=== PATIENT | male | born 1965 | race Hispanic/Latino ===

== ENCOUNTER 2016-10-11 08:37 | Emergency (ER) | payer OTHER ==
[2016-10-11 08:52] VITALS: RESP 18
[2016-10-11 08:53] VITALS: TEMP 97.8
[2016-10-11] MEDS ORDERED: Silver Sulfadiazine 1% Cream (20 gm) TOP STA (08:55)
--- NOTE | 2016-10-11 09:15 | ED PDOC ---
Arrival/HPI - General Chief Complaint: Abnormal Skin Integrity Time Seen by Provider: 10/11/16 08:45 Historian: Patient - History of Present Illness Narrative History of Present Illness (Text): 10/11/16 09:16 A 50 year old male, whose past medical history includes cellulitis, was sent to the emergency department by PMD complaining of a right lower leg blister that developed this week. Patient reports blister was drained and cleaned and was told to come to emergency department for ultrasound of lower extremity. Patient is able to ambulate without difficulty. Denies any injury or pain to area, calf pain or any other complaints at this time. Medications: Levaquin, Zestril, Hydrodiuril (three days) Time/Duration: < week Symptom Onset: Sudden Symptom Course: Unchanged Activities at Onset: Rest Context: Home Past Medical History - Provider Review Nursing Documentation Reviewed: Yes - Travel History If Yes, travel location?: [place] - Cardiac Hx Hypertension: Yes - Integumentary Other/Comment: RLL CELLULITIS - Psychiatric Hx Substance Use: No Family/Social History - Physician Review Nursing Documentation Reviewed: Yes Family/Social History: No Known Family HX Smoking Status: Never Smoked Hx Alcohol Use: No Hx Substance Use: No Allergies/Home Meds Allergies/Adverse Reactions: Allergies No Known Allergies Allergy (Verified 10/11/16 08:49) Home Medications: Home Meds Medication Instructions Recorded Confirmed Lisinopril [Zestril] 10 mg PO DAILY 10/11/16 10/11/16 hydroCHLOROthiazide [Hydrodiuril] 25 mg PO DAILY 10/11/16 10/11/16 levoFLOXacin [Levaquin] 500 mg PO DAILY 10/11/16 10/11/16 Review of Systems - Physician Review All systems were reviewed & negative as marked: Yes - Review of Systems Constitutional: absent: Fevers Musculoskeletal: absent: Other (calf pain) Skin: Other (right lower leg blister; no pain) Physical Exam Vital Signs Reviewed: Yes Vital Signs Temp Pulse Resp BP Pulse Ox 10/11/16 10:38 50 L 18 140/78 99 10/11/16 08:46 97.8 F 72 18 131/67 97 Temperature: Afebrile Blood Pressure: Normal Pulse: Regular Respiratory Rate: Normal Appearance: Positive for: Well-Appearing, Non-Toxic, Comfortable Pain Distress: None Mental Status: Positive for: Alert and Oriented X 3 - Systems Exam Head: Present: Atraumatic, Normocephalic Pupils: Present: PERRL Extroacular Muscles: Present: EOMI Conjunctiva: Present: Normal Mouth: Present: Moist Mucous Membranes Neck: Present: Normal Range of Motion Respiratory/Chest: Present: Clear to Auscultation, Good Air Exchange. No: Respiratory Distress, Accessory Muscle Use Cardiovascular: Present: Regular Rate and Rhythm, Normal S1, S2. No: Murmurs Abdomen: Present: Normal Bowel Sounds. No: Tenderness, Distention, Peritoneal Signs Back: Present: Normal Inspection Upper Extremity: Present: Normal Inspection. No: Cyanosis, Edema Lower Extremity: Present: NORMAL PULSES (b/l), Erythema (minimal surrounding ), Other (10 cm circular blister on right lower anterior gay; serous drainage; 1+ pitting edema b/l lower legs; normal dp pulses b/l) Neurological: Present: GCS=15, CN II-XII Intact, Speech Normal Skin: Present: Warm, Dry, Normal Color. No: Rashes Psychiatric: Present: Alert, Oriented x 3, Normal Insight, Normal Concentration Medical Decision Making ED Course and Treatment: 10/11/16 10:10 US lower extremity: Discussed with US tech, ultrasound of lower extremity showed DVT negative. No blisters anywhere else pt appears very well no toxicity LE pulses normal will rx for cellulitis and rec close f/u to resolution pt v/u and agrees w plan - RAD Interpretation Radiology Orders: 10/11/16 08:54 DUPLEX LOWER EXTRM VEIN RIGHT [US] Stat - Medication Orders Current Medication Orders: Discontinued Medications Silver Sulfadiazine (Silvadene 1% 20 Gm) 1 ea TOP STAT STA Stop: 10/11/16 08:56 Last Admin: 10/11/16 10:15 Dose: 1 % - Scribe Statement The provider has reviewed the documentation as recorded by the Carie Hall Provider Scribe Attestation: All medical record entries made by the Scribe were at my direction and personally dictated by me. I have reviewed the chart and agree that the record accurately reflects my personal performance of the history, physical exam, medical decision making, and the department course for this patient. I have also personally directed, reviewed, and agree with the discharge instructions and disposition. Disposition/Present on Arrival - Present on Arrival Any Indicators Present on Arrival: No History of DVT/PE: No History of Uncontrolled Diabetes: No Urinary Catheter: No History of Decub. Ulcer: No History Surgical Site Infection Following: None - Disposition Have Diagnosis and Disposition been Completed?: Yes Diagnosis: Cellulitis, Blister Disposition: HOME/ ROUTINE Disposition Time: 10:38 Condition: GOOD Discharge Instructions (ExitCare): Cellulitis (ED) Additional Instructions: Please follow up with your doctor in the next 2 days. Return to the ER for any worsening symptoms, fever, nausea, vomiting, or for any other concerns. Prescriptions: Doxycycline Monohydrate 100 mg PO BID #14 tablet Silver Sulfadiazine 1% [Silver Sulfadiazine] 1 appl TP BID #1 jar Referrals: Ana Garcia, [Non-Staff] - Follow up with primary Forms: [employer] (Czech)
[2016-10-11 10:39] VITALS: BP 140/78; PULSE 50; O2SAT 99
--- NOTE | 2016-10-11 12:48 | US ---
PROCEDURE: Right lower extremity venous US HISTORY: Leg pain and swelling. Evaluate for DVT. PHYSICIAN(S): Peter Otero M.D. TECHNIQUE: Duplex sonography and color-flow Doppler with graded compression were used to evaluate the deep venous system of the right lower extremity. FINDINGS: The visualized deep venous system of the right lower extremity is sonographically normal and compressible. Normal waveforms and augmentation are seen. There is no sonographic evidence for deep venous thrombosis in the visualized segments of the right lower extremity. IMPRESSION: 1. No sonographic evidence for deep venous thrombosis in the visualized segments of the right lower extremity.
== END 2016-10-11 10:39 | disposition home or self-care (01) ==
LOC: ED 08:37
DX: S80.821D Blister (nonthermal), right lower leg, subsequent encounter (principal); X58.XXXD Exposure to other specified factors, subsequent encounter; L03.115 Cellulitis of right lower limb